=== PATIENT | female | born 1960 | race Caucasian/White ===

== ENCOUNTER → 2017-02-08 | Day surgery (SDC) | payer BC, MEDICAID ==
[~2017-02-08] MED LIST: CELEXA20 M1 PO; FLEXERIL10 MG PO; LIPITOR20 MG PO; MELOXICAM7.5 MG; NAPROXEN PO; OMEPRAZOLE20 M2 PO; OMEPRAZOLE40 M1 PO; PRILOSEC PO; SYNTHROID112 MCG PO; WELLBUTRIN SR150 M1
--- NOTE | ~2017-02-08 | OR ---
Unit #: [id number] #: [id number] Patient: SUNNY GUTIERREZ [id number] [facility]. [place], [place] [address] [id number] O MR#: [id number] NAME: SUNNY GUTIERREZ ROOM: Date of Procedure: 02/08/2017 Admission Date: 02/08/2017 Surgeon: Remy Olivia M.D. : 1960 Attending Physician: Remy Olivia M.D. Primary Care Physician: Primary Care Physician No OPERATIVE REPORT JOB NOTE: CC: ROB COLE PREOPERATIVE DIAGNOSES The patient presented with history of dyspepsia and epigastric pain. In addition, she needs a surveillance colonoscopy having had family history of colon cancer in her father. She also has history of intermittent nausea, vomiting, and significant weight loss. PROCEDURES PERFORMED Upper gastrointestinal endoscopy and biopsy as well as colonoscopy up to cecum and terminal ileum. POSTOPERATIVE DIAGNOSES 1. For upper endoscopy, the patient has mild patchy focal erosive duodenitis. Otherwise, examination normal up to third part of duodenum. A biopsy obtained from the antrum for CLOtest. 2. For colonoscopy, completely normal examination up to cecum and terminal ileum. The quality of the prep was excellent. RECOMMENDATIONS 1. Omeprazole 40 mg p.o. daily. 2. The patient also scheduled to have an outpatient CT scan of the abdomen and pelvis with oral and IV contrast in view of profound weight loss. We also checked her TSH, the report of which should be available in a day or so. Lastly, considerable discussion was held with the patient as she does seem to be depressed as she was asked to seek any help in this regard. She is extremely worried as her son who is a 37-year-old has HIV. Interestingly, he is working full-time at [employer]. SEDATION USED MAC. DESCRIPTION OF PROCEDURE Following detailed explanation of the potential risks and complications of an upper endoscopy and a colonoscopy, namely perforation, bleeding, and complications related to sedation, the patient was brought to GI lab and laid in the left lateral decubitus position. Lubricated tip of the Olympus video upper endoscope was passed through the bite block into the proximal esophagus under direct vision. The entire esophageal mucosa was examined and appeared normal. Z-line was nicely demarcated, there being no esophagitis or hiatus hernia. The scope was then advanced into the gastric cavity and the latter was insufflated. Mucosa of the fundus, Unit #: [id number] #: [id number] Patient: THEISING,SUNNY body, and antrum examined and appeared unremarkable. Pylorus was intubated with visualization of the duodenal bulb. The latter was noted to have focal patchy erosive mild duodenitis. Second and third part of duodenum were normal. Upon withdrawal and retroflexion, incisura, cardia, and greater curve examined and biopsy obtained from the antrum for CLOtest. The scope was then withdrawn in the distal esophagus. The entire esophageal mucosa was examined all the way up to pharynx. No additional findings noted. The examination table was then turned by 180 degrees and the patient positioned for a colonoscopy. A digital rectal examination was performed, which was normal. Lubricated tip of the Olympus video colonoscope was inserted through the anus and advanced under direct vision. The scope was advanced and passed up to sigmoid into descending colon. No diverticula were noted in this area. The scope tip was then navigated all the way up to cecum with visualization of the ileocecal valve and the appendiceal orifice. Preparation was excellent with good visualization and photodocumentation was obtained. Last several inches of terminal ileum also visualized after intubation of the ileocecal valve and appeared normal. Successive segments of the colonic mucosa were examined upon withdrawal and appeared unremarkable. There being no polyps, mass lesions, AVMs, or diverticula. The patient did not have any hemorrhoids at anal verge. The scope was then withdrawn. The patient returned to recovery area. She tolerated the procedure without any postprocedure complications. Dictated by... Vito Fox TD: 02/08/2017 18:22 JOB #: [id number] OPERATIVE REPORT Page 1 of 1 X Remy Olivia MD X PROCEDURE OPERATIVE NOTE
== END | disposition home or self-care (01) ==
LOC: COPS 06:16
DX: K52.9 Noninfective gastroenteritis and colitis, unspecified (principal); E03.9 Hypothyroidism, unspecified; K21.9 Gastro-esophageal reflux disease without esophagitis; E78.5 Hyperlipidemia, unspecified; F17.210 Nicotine dependence, cigarettes, uncomplicated; Z87.442 Personal history of urinary calculi; Z79.1 Long term (current) use of non-steroidal anti-inflammatories (NSAID); Z80.0 Family history of malignant neoplasm of digestive organs; Z79.899 Other long term (current) drug therapy; Z90.710 Acquired absence of both cervix and uterus; Z90.49 Acquired absence of other specified parts of digestive tract; Z98.890 Other specified postprocedural states
CPT/HCPCS: 84443; 87077; 88305; J2250

== ENCOUNTER → 2017-02-14 | Outpatient (CLI) | payer BC ==
--- NOTE | ~2017-02-14 | CT2 ---
"[facility] A Service of [facility] RADIOLOGY TEXT RESULTS PATIENT: SUNNY GUTIERREZ LOCATION: [facility] : 60 UNIT #: [id number] AGE: [address]: Remy Olivia MD SEX: F ORDER DR: [id number] [facility]. [place], [place] [address] [id number] O MR#: [id number] #: [id number] NAME: SUNNY GUTIERREZ : 1960 SEX: F STUDY DATE/TIME: 02/14/2017 10:37 UNIT: [facility] ROOM: STUDY DESCRIPTION: CT Abd and Pelv W Cont Attending Physician: Remy Olivia M.D. Referring Physician: Remy Olivia M.D. Ordering Physician: Remy Olivia M.D. Primary Care Physician: No Primary Care Physician MEDICAL IMAGING REPORT This report is preliminary unless electronic signature is present EXAM CT abdomen and pelvis with contrast. INDICATION Right upper quadrant abdominal pain for the past 6 months with nausea and vomiting. PROCEDURE Contrast-enhanced CT of the abdomen and pelvis. This CT exam was performed with one or more of the following radiation dose reduction techniques: automatic exposure control, adjustment of mA and/or kV according to patient size, and iterative reconstruction. COMPARISON None. FINDINGS Abdomen with contrast: Scattered calcified granulomas in the lung bases. Liver, spleen, kidneys, adrenal glands, pancreas is unremarkable. Previous cholecystectomy. Bowel loops are nondilated. Appendix is normal. Pelvis with contrast: No pelvic mass or fluid. Previous hysterectomy. No aggressive appearing bone lesion. IMPRESSION 1. No clearly acute finding in the abdomen or pelvis.| 2. Incidental findings detailed above. Dictated by... Alex Mondragon M.D. [facility] A Service of [facility] RADIOLOGY TEXT RESULTS PATIENT: SUNNY GUTIERREZ LOCATION: [facility] : 60 UNIT #: [id number] AGE: [address]: Remy Olivia MD SEX: F ORDER DR: THIS IS AN ELECTRONICALLY VERIFIED REPORT Alex Mondragon M.D. at 02/14/2017 5:00 PM Mir TD: 02/14/2017 14:56 JOB #: [id number] MEDICAL IMAGING REPORT Page 1 of 1 COPY"
[2017-02-14 13:26] LABS: POC - CREATININE 1.03 mg/dL (0.44-1.03)
== END | disposition home or self-care (01) ==
LOC: CCAT 09:13
PROVIDERS: Internal Medicine Gastroenterology
DX: R10.9 Unspecified abdominal pain (principal)
CPT/HCPCS: 74177; 82565; Q9967